=== PATIENT | male | born 1955 | race Caucasian/White ===

== ENCOUNTER 2016-09-08 11:10 | Emergency (ER) | payer MEDICAID ==
[2016-09-08 11:24] VITALS: TEMP 97.9
[2016-09-08 12:02] LABS: BASOPHILS % (AUTO) 1 % (0-3); EOSINOPHILS % (AUTO) 11 % (0-9); HEMATOCRIT 39 % (39-53); MEAN CORPUSCULAR HGB CONC 33.9 gm/dl (32.0-36.0); MEAN CORPUSCULAR VOLUME 88 fL (80-100); MONOCYTES % (AUTO) 11.6 % (0-12); NEUTROPHILS % (AUTO) 37.3 % (37-80)
[2016-09-08 14:59] VITALS: RESP 18; O2SAT 95
[2016-09-08 15:53] VITALS: BP 125/69; PULSE 79
== END 2016-09-08 15:35 | DRG 192 ==
LOC: ED 11:10
DX: J44.9 Chronic obstructive pulmonary disease, unspecified (principal)
CPT/HCPCS: 36415; 71010; 85025; 99283